=== PATIENT | male | born 1950 | race Caucasian/White ===

== ENCOUNTER → 2016-08-17 | Outpatient (CLI) | payer MEDICARE, OTHER ==
[~2016-08-17] MED LIST: ALEVE; ALEVE220 M1 PO; ASPIRIN PO; FIBER625 M1 PO; FISH OIL 1,0001 CAP PO; FISH OIL 1,2001 EAC1 PO; LIPITOR20 MG PO; METAMUCIL; NORVASC PO; PRILOSEC PO; ZOCOR PO
--- NOTE | ~2016-08-17 | CR184 ---
[facility] A Service of [facility] & [facility] RADIOLOGY TEXT RESULTS PATIENT: MARY JANE LARRY LOCATION: [facility] : 52 UNIT #: [id number] AGE: [address]: Lanie Roper MD SEX: M ORDER DR: [id number] [facility] [address]. [place], [place] [address] [id number] O MR#: [id number] Acc #: [id number] NAME: MARY JANE LARRY. : 1950 SEX: M STUDY DATE/TIME: 08/17/2016 12:16 UNIT: [facility] ROOM: STUDY DESCRIPTION: CR Lumbar Spine Min 4 Views Attending Physician: Lanie Roper M.D. Referring Physician: Lanie Roper M.D. Ordering Physician: Lanie Roper M.D. Primary Care Physician: Lanie Roper M.D. MEDICAL IMAGING REPORT This report is preliminary unless electronic signature is present EXAM Lumbar series 08/17/2016 INDICATION 66-year-old male with history of degenerative disc disease in the lumbar spine and chronic low back pain. TECHNIQUE Frontal, lateral, flexion, extension and coned-down lateral views performed. Correlation is made with MRI 11/28/2009. FINDINGS Postop changes of cholecystectomy are present. Vertebral body heights are maintained. Alignment is preserved. There is advanced degenerative disc disease at L4-5 and L5-S1 with vacuum disc phenomenon at both levels. At least moderate to moderately severe facet arthropathy at L4-5 and L5-S1 with mild facet arthropathy at L3-4. Flexion and extension views demonstrate no significant instability. There is atherosclerotic change of the aorta. Mild spurring of L4 and L5. Nonspecific osseous density projects just medial to the SI joint on the left measuring 2 cm. This is either new or increasing in size compared to a prior lumbar series 11/25/2009. If there is any history of malignancy then metastatic disease could present in a similar fashion. This could be further assessed with bone scan or dedicated CT. When compared to the prior 2009 lumbar plain film series, the degenerative changes in the lumbar spine demonstrate slight interval progression. IMPRESSION 1. Advanced degenerative changes in the lower lumbar spine at L4-5, L5-S1 related to degenerative disc disease and facet arthropathy. Slight progression from 2009. 2. No acute fracture or malalignment. [facility] A Service of [facility] & [facility] RADIOLOGY TEXT RESULTS PATIENT: MARY JANE LARRY LOCATION: [facility] : 52 UNIT #: [id number] AGE: [address]: Lanie Roper MD SEX: M ORDER DR: 3. No evidence of instability on flexion or extension. 4. 2 cm nonspecific osseous density associated with the left lv-sacrum. This is indeterminate based on plain film imaging. If there is a history of malignancy then an osseous sclerotic metastasis could present similarly. This could be best further assessed with a bone scan or CT initially for better characterization. STAT * RESULT Dictated by... Enio Wyatt M.D. THIS IS AN ELECTRONICALLY VERIFIED REPORT Enio Wyatt M.D. at 08/17/2016 4:03 PM NEVILLE/kristina TD: 08/17/2016 14:15 JOB #: [id number] MEDICAL IMAGING REPORT COPY
== END | disposition home or self-care (01) ==
LOC: CRAD 11:55
DX: M51.36 Other intervertebral disc degeneration, lumbar region (principal); M51.37 Other intervertebral disc degeneration, lumbosacral region; M47.816 Spondylosis without myelopathy or radiculopathy, lumbar region; M47.817 Spondylosis without myelopathy or radiculopathy, lumbosacral region
CPT/HCPCS: 72110